=== PATIENT | female | born 1980 | race Caucasian/White ===

== ENCOUNTER 2017-12-13 01:57 | Emergency (ER) | payer BC ==
[~2017-12-13] VITALS: Ht 149.9 cm; Wt 59.0 kg
[2017-12-13 02:10] VITALS: BP_SYST 148
--- NOTE | 2017-12-13 02:10 | NUR ---
Patient to ER bed 3 to gown for evaluation. Side rails up. Report given to Joel SALINAS.
--- NOTE | 2017-12-13 02:15 | NUR ---
Patient ambulatory to ED a/o x 4 with c/o ABD pain. Patient reports over eating while at family event. Presents with 8/10 burning pain to the mid abdomen. +N; -V/D. Patient used home remedies with no relief. Hx of H. pylori. Patient is concerened, because this is her 4th time visiting ED for similiar problem. ABD is soft and non-tender. Afebrile. -CP -SOB
--- NOTE | 2017-12-13 02:20 | NUR ---
ED MD Quinones at bedside for medical evaluation.
[2017-12-13] MEDS ORDERED: ONDANSETRON 4 MG ODT TAB PO ONE (02:30)
[2017-12-13] MEDS ORDERED: SIMETHICONE 80 MG TAB.CHEW PO ONE (02:30)
[2017-12-13] MEDS ORDERED: FAMOTIDINE 20 MG TABLET PO ONE (02:30)
[2017-12-13] MEDS ORDERED: IBUPROFEN 800 MG TABLET PO ONE (03:30)
[2017-12-13] MEDS ORDERED: NACL 0.9% 1,000 ML IV ONE (04:00)
--- NOTE | 2017-12-13 04:06 | NUR ---
#20 gauge angiocath placed to RAC. Use of asceptic technique. Opsite placed over site. Blood return noted. Blood for lab drawn from site. Flushed with 10 cc of normal saline. No evidence of infiltration noted. Patient tolerated well.
--- NOTE | 2017-12-13 04:30 | NUR ---
ED MD Quinones at bedside reassessing patient
[2017-12-13 04:33] LABS: BASOPHILS % (AUTO) 0.1 % (0.0-2.0); EOSINOPHILS % (AUTO) 0.1 % (0.0-4.0); HEMATOCRIT 44.5 % (36-48); HEMOGLOBIN 15.1 g/dL (12.0-16.0); LYMPHOCYTES # (AUTO) 1.3 K/uL (1.0-5.5); LYMPHOCYTES % (AUTO) 11.6 % (20.5-51.5); MEAN CORPUSCULAR HEMOGLOBIN 32 pg (27-31); MEAN CORPUSCULAR HGB CONC 34 % (32-36); MEAN CORPUSCULAR VOLUME 93 fL (79.0-98.0); MONOCYTES # (AUTO) 0.4 K/uL (0.0-1.0); MONOCYTES % (AUTO) 3.6 % (1.7-9.3); NEUTROPHILS # (AUTO) 9.6 K/uL (1.8-7.7); NEUTROPHILS % (AUTO) 84.6 % (40.0-70.0); PLATELET COUNT (AUTO) 248 K/uL (130-430); RED BLOOD CELL COUNT(AUTO) 4.78 MIL/uL (4.2-6.2); RED CELL DISTRIBUTION WIDTH 11.6 % (9.0-15.0); WHITE BLOOD COUNT (AUTO) 11.3 K/uL (4.8-10.8)
[2017-12-13 04:37] LABS: CREATININE 0.62 mg/dL (0.55-1.30); POTASSIUM 4.1 mmol/L (3.5-5.1)
[2017-12-13 04:41] LABS: ALBUMIN 4.4 g/dL (3.4-4.8); TOTAL BILIRUBIN 0.2 mg/dL (0.0-1.0)
[2017-12-13 04:52] VITALS: BP_SYST 131
--- NOTE | 2017-12-13 04:52 | NUR ---
Patient given written and verbal discharge instructions and verbalizes understanding. ER MD discussed with patient the results and treatment provided. Patient in stable condition. ID arm band removed. IV catheter removed intact and dressing applied, no active bleeding. No Rx given. Patient educated on pain management and to follow up with PMD. Pain Scale 2/10 tolerable for patient. Opportunity for questions provided and answered.
== END 2017-12-13 04:52 | disposition home or self-care (01) ==
LOC: SED 01:57
DX: K52.9 Noninfective gastroenteritis and colitis, unspecified (principal)
CPT/HCPCS: 36415; 80053; 81025; 83690; 85025; 99284; J7030; Q0162